=== PATIENT | female | born 1950 | race Asian ===

== ENCOUNTER 2017-06-06 07:41 | Day surgery (SDC) | payer OTHER ==
[2017-06-06] MEDS ORDERED: LIDOCAINE 4% SOLUTION 50 ML BTL (08:59)
[2017-06-06] MEDS ORDERED: MIDAZOLAM 1 MG/ML 2 ML INJ ×2 (09:57)
[2017-06-06] MEDS ORDERED: FENTAnyl 50 MCG/ML VIAL (09:58)
== END 2017-06-06 11:42 | disposition home or self-care (01) ==
LOC: GIL 07:41
DX: Z12.11 Encounter for screening for malignant neoplasm of colon (principal); K21.0 Gastro-esophageal reflux disease with esophagitis; K29.70 Gastritis, unspecified, without bleeding; K64.4 Residual hemorrhoidal skin tags; I10 Essential (primary) hypertension
CPT/HCPCS: 43239; 84703; 88305; 88312; 88313